=== PATIENT | male | born 1950 | race Caucasian/White ===

== ENCOUNTER 2021-02-09 07:37 | Outpatient (RCR) | payer OTHER, SELFPAY ==
[2021-01-12 09:28] VITALS: BMI 41.9
== END 2021-03-23 10:39 | disposition home or self-care (01) ==
LOC: ANHWOC 07:37
PROVIDERS: PCP Family Medicine; Visit Provider Podiatrist Foot & Ankle Surgery
DX: A52.16 Charcot's arthropathy (tabetic) (principal); L97.429 Non-pressure chronic ulcer of left heel and midfoot with unspecified severity
CPT/HCPCS: 29445; 87070; 87147; 87181; 87186; 87205; 88305; 99213; A9270; G0463

== ENCOUNTER 2021-04-04 11:17 | Inpatient (IN) | payer OTHER, SELFPAY ==
[2021-04-04] VITALS (11 sets, daily range): BP systolic 91–151; BP diastolic 52–76; PULSE 80–112; RESP 18–20; TEMP 37.2–37.4; O2SAT 91–100; BMI 36.8
--- NOTE | ~2021-04-04 | XR_ITS ---
XR knee RT min 4V 04/04/2021 12:28 INDICATION: Right knee pain after fall PROCEDURE: 4 views right knee COMPARISON: No prior studies for comparison. FINDINGS: Fracture, dislocation or subluxation is not identified. There is atherosclerosis. There is a vascular stent in the popliteal region. There is right total knee arthroplasty. Prosthesis well sea deborah. The soft tissues appear within normal limits. No foreign bodies are identified. IMPRESSION: 1: NO ACUTE BONE OR JOINT ABNORMALITY IDENTIFIED. Reviewed, dictated and finalized at location B.
--- NOTE | ~2021-04-04 | XR_ITS ---
EXAMINATION: XR sacrum coccyx min 2V INDICATION: Pain after fall TECHNIQUE: Three views of the sacrum and coccyx are obtained. COMPARISON: None available FINDINGS: Bone alignment is normal. No fracture is identified. There is mild lower lumbar spondylosis . Calcified atherosclerosis is noted. IMPRESSION: 1. No acute osseous abnormality. Reviewed, dictated and finalized at location A.
--- NOTE | ~2021-04-04 | XR_ITS ---
EXAMINATION: XR chest 1V portable INDICATION: Dizziness TECHNIQUE: Portable AP chest at 1259 hours COMPARISON: 05/22/2012 FINDINGS: The lungs are free acute opacities. There is no pleural effusion or pneumothorax. The cardi omediastinal silhouette is normal. There is advanced osteoarthritis of the glenohumeral joints. IMPRESSION: 1. No acute cardiopulmonary abnormality. Reviewed, dictated and finalized at location A.
--- NOTE | ~2021-04-04 | US_ITS ---
EXAMINATION: US venous doppler [facility] DATE: 04/05/2021 12:38 INDICATION: Left lower limb swelling TECHNIQUE: Baptiste scale images without and with compression and Doppler images of the left lower extrem ity veins were obtained. COMPARISON: None FINDINGS: The left common femoral vein, profunda femoral vein, femoral vein, popliteal vein, peroneal trunk, posterior tibial veins, and greater saphenous vein are patent. A Villasenor's cyst is noted. IMPRESSION: 1. Patent left lower extremity veins. No evidence of deep venous thrombosis. Reviewed, dictated and finalized at location A.
--- NOTE | ~2021-04-04 | XR_ITS ---
EXAMINATION: XR foot LT min 3V DATE: 04/04/2021 16:54 INDICATION: Left foot infection with plantar ulcer. TECHNIQUE: 3 views of left foot were obtained. COMPARISON: Left foot radiographs 08/23/2020 FINDINGS: There is a rocker-bottom foot deformity with dislocations, extensive erosions, and bone fra gmentation involving the midfoot and hindfoot. There is mild osteoarthritis of some of the interphala ngeal joints. There is an enthesophyte at plantar aspect of calcaneal tuberosity. There is an ulcer p lantar to the midfoot. IMPRESSION: 1. 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 The location of t he plantar ulcer is suspicious for superimposed osteomyelitis/septic arthritis. Note that neuropathic osteoarthropathy and osteomyelitis/septic arthritis have a similar appearance, and the distribution of infection likely cannot be determined by imaging in this case. Reviewed, dictated and finalized at location A. IMPRESSION: 1. Worsened severe neuropathic osteoarthropathy involving the midfoot and hindf oot. The location of the plantar ulcer is suspicious for superimposed osteomyel itis/septic arthritis. Note that neuropathic osteoarthropathy and osteomyelitis /septic arthritis have a similar appearance, and the distribution of infection likely cannot be determined by imaging in this case.
--- NOTE | ~2021-04-04 | XR_ITS ---
XR shoulder RT min 2V 04/04/2021 12:28 Indication: Bilateral shoulder pain after fall Procedure: 4 views each shoulder Comparison: No prior studies for comparison. Findings: There is severe bilateral glenohumeral joint osteoarthritis. Acromioclavicular joint and an atomic alignment bilaterally. No acute fracture or traumatic malalignment. There are bilateral infilt rates of the lung parenchyma, incompletely visualized. No foreign bodies. Impression: 1: Severe bilateral glenohumeral joint osteoarthritis. 2: Bilateral lung parenchymal infiltrates. Correlation with chest x-ray recommended. Reviewed, dictated and finalized at location B. Impression: 1: Severe bilateral glenohumeral joint osteoarthritis. 2: Bilateral lung parenchymal infiltrates. Correlation with chest x-ray recomm ended.
--- NOTE | ~2021-04-04 | XR_ITS ---
XR hip LT min 2V 04/04/2021 12:28 INDICATION: Left hip pain PROCEDURE: 2 views left hip COMPARISON: 05/16/2012 FINDINGS: Fracture, dislocation or subluxation is not identified. There is mild osteoarthritis of the left hip. The soft tissues appear within normal limits. No foreign bodies are identified. IMPRESSION: 1: NO ACUTE BONE OR JOINT ABNORMALITY IDENTIFIED. Reviewed, dictated and finalized at location B.
--- NOTE | ~2021-04-04 | XR_ITS ---
EXAMINATION: XR shoulder LT min 2V INDICATION: Left shoulder pain TECHNIQUE: Four views of the left shoulder are submitted. COMPARISON: 05/22/2012 FINDINGS: There is no fracture. There is advanced osteoarthritis of the glenohumeral joint. Mild oste oarthritis is noted in the acromioclavicular joint. Soft tissues are unremarkable. IMPRESSION: 1. Advanced osteoarthritis of the glenohumeral joint without acute osseous findings. Reviewed, dictated and finalized at location A. IMPRESSION: 1. Advanced osteoarthritis of the glenohumeral joint without acute osseous find ings.
--- NOTE | ~2021-04-04 | MR_ITS ---
EXAMINATION: MR foot LT wo con DATE: 04/05/2021 12:31 INDICATION: Chronic ulcer at the left foot with findings on prior radiograph concerning for osteomyel itis. TECHNIQUE: Magnetic resonance imaging (MRI) of the left fore/mid foot was performed without intraveno us contrast. Sequences included axial, sagittal and coronal T1-weighted FSE and axial, sagittal and c oronal T2-weighted FS FSE. COMPARISON: None FINDINGS: Again seen are prominent destructive changes in the mid and hindfoot. This involves most severely the cuboid, cuneiforms and navicula where there is significant loss of bone stock and complete or near c omplete loss of normal T1 marrow fat signal. Additional less severe destructive changes but with exte nsive T1 marrow signal loss at the talus, calcaneus and proximal aspect of the fourth and fifth metat arsals. Mild destructive changes without significant T1 marrow signal loss at the base of the second and third metatarsals. There is a small amount of fluid fluid extending between the affected bones an d with appears be a sinus tract extending from the region of the region of the fourth tarsal metatars al joint plantar through the fat pad to the ulceration at the plantar skin surface. There is also a d orsal extension of fluid from the same region of the fourth tarsal metatarsal joint communicate with a large loculated subcutaneous fluid collection positioned between the base in the distal diaphyses o f the second-fifth metatarsals which is most suspicious for abscess. This fluid collection measures u p to 8.5 cm proximal to distal, 6.3 cm medial to lateral and up to 1.8 cm dorsal plantar thickness. A lthough the destructive bone changes in the mid and hindfoot could be seen with advanced Charcot join t/neuropathic arthropathy, the degree of marrow signal changes, the presence of apparent sinus tract as well as large loculated fluid collection suspicious for abscess would also favor osteomyelitis ear ly superimposed osteomyelitis over an aseptic neuropathic arthropathy. There are marrow signal change s along the margins of the distal tibia most prominent at the medial and posterior malleoli as well a s at the distal fibula which are also suspicious for osteomyelitis. There appears to be early erosion along the inferomedial aspect of the tip of the lateral malleolus at the insertion of the calcaneofi bular ligament. IMPRESSION: 1. Extensive osseous destructive changes in the mid and hindfoot most suspicious for osteomyelitis or osteomyelitis superimposed over neuropathic arthropathy for reasons as detailed above. Additional ma rrow signal changes at the distalmost tibia and fibula also suspicious for early osteomyelitis. 2. 8.5 x 6.3 x 1.8 cm loculated fluid collection the dorsal subcutaneous tissues which appears to com municate with the Lisfranc joint most suspicious for associated abscess. Could consider percutaneous aspiration for confirmatory Gram stain and cultures if clinically indicated. Reviewed, dictated and finalized at location A. IMPRESSION: 1. Extensive osseous destructive changes in the mid and hindfoot most suspiciou s for osteomyelitis or osteomyelitis superimposed over neuropathic arthropathy for reasons as detailed above. Additional marrow signal changes at the distalmo st tibia and fibula also suspicious for early osteomyelitis. 2. 8.5 x 6.3 x 1.8 cm loculated fluid collection the dorsal subcutaneous tissue s which appears to communicate with the Lisfranc joint most suspicious for asso ciated abscess. Could consider percutaneous aspiration for confirmatory Gram st ain and cultures if clinically indicated.
--- NOTE | 2021-04-04 11:44 | ECG_ITS ---
Measurements Intervals [place] Rate: 92 P: 95 KS: 200 QRS: -17 QRSD: 103 T: 7 QT: 330 QTc: 409 Interpretive Statements SINUS RHYTHM ANTEROSEPTAL INFARCT, AGE INDETERMINATE NONSPECIFIC T-WAVE ABNORMALITY- ANTEROLAT/INF LEADS BASELINE ARTIFACT- I, II, III, AVR, AVL, AVF ABNORMAL ECG Electronically Signed On 04-04-2021 12:28:09 CDT by Benito Mcallister D.O.
[2021-04-04 12:03] LABS: Basophils Percent Auto 0.2 % (0.2-1.2); Hematocrit 27.9 % (42.0-52.0); Hemoglobin 8.5 g/dL (14.0-18.0); Immature Granulocyte Absolute 0.19 K/mm3 (0.00-0.031); Lymphocytes Absolute Auto 0.72 K/mm3 (0.9-3.2); Lymphocytes Percent Auto 3.7 % (18.3-44.2); Mean Corpuscular HGB Conc 30.5 g/dl (32-36); Mean Corpuscular Volume 75.6 fl (80-100); Mean Platelet Volume 8.8 fl (7.4-10.4); Neutrophils Absolute Auto 17.5 K/mm3 (1.3-6.7); Neutrophils Percent Auto 90.1 % (45.5-73.1); Platelet Count Result 540 k/mm3 (150-375); Red Blood Count 3.69 M/mm3 (4.6-6.20); Red Cell Distribution Width 17.9 % (11.5-14.5); White Blood Count 19.4 K/mm3 (4.5-10.0)
[2021-04-04 12:15] LABS: Anion Gap 11 mmol/L (8-16); Blood Urea Nitrogen 38 mg/dL (9-20); Carbon Dioxide 23 mmol/L (22-30); Chloride 98 mmol/L (98-107); Estimated CRCL calculation 59 ml/min; Estimated Glomerular Filt Rate 50; Glucose 94 mg/dL (75-110); Potassium 4.5 mmol/L (3.4-5.0); Sodium 132 mmol/L (137-145)
--- NOTE | 2021-04-04 12:48 | PC.NURSE ---
patient reports that he fell in his garage 2 days ago and layed on the floor for for 2 hours. patient reports that everything hurts and will not give specifics about his injuries. patient seems more concerned about looking for a coin in his pockets than participating in assessment
--- NOTE | 2021-04-04 13:22 | PC.NURSE ---
attempted to complete med list and past medical history on patient patient again distracted by items in his pockets and unwilling/unable to provided information
[2021-04-04 13:33] LABS: Lactic Acid Reflex 1.5 mmol/L (0.7-2.1)
--- NOTE | 2021-04-04 15:12 | ED.GENADULT ---
HPI - General Adult General Chief complaint: Fall Stated complaint: fall Time Seen by Provider: 04/04/21 13:14 Source: patient History of Present Illness HPI narrative: Patient is a 70 y/o male complaining of falling yesterday in his garage. He states that he had difficulty getting up and had to call 911 to help him up. He did not come to hospital for evaluation however. He complains of right knee pain, bilateral shoulder pain and bilateral knee abrasion. He denies hitting his head or passing out. He rates his pain as 10/10. His pain is worse with movement. He also has been coughing for several weeks. He has chronic left foot draining wound. Related Data Home Medications Medication Instructions Recorded Confirmed hydrocodone 10 mg-acetaminophen 1 tablet PO Q8H PRN 12/10/19 02/01/21 325 mg tablet ciprofloxacin HCl 250 mg tablet 750 mg PO Q12H tablet 03/02/21 metronidazole 500 mg tablet 500 mg PO Q8H 03/02/21 clopidogrel 75 mg tablet 75 mg PO DAILY 03/25/21 oxycodone-acetaminophen 1 tablet PO Q4-6H 04/04/21 Allergies Allergy/AdvReac Type Severity Reaction Status Date / Time propoxyphene Allergy Unknown Anaphylactic Verified 03/02/21 11:15 Shock Review of Systems Constitutional: Constitutional: Denies chills, Denies fever(s), Denies headache(s) and Denies weakness Eyes: Eyes: Denies blurry vision ENT: Denies headache(s) and Denies neck pain Cardiovascular: Cardiovascular: Denies chest pain and Denies dyspnea Respiratory: Respiratory: Denies cough and Denies dyspnea Gastrointestinal: Gastrointestinal: Denies abdominal pain, Denies diarrhea, Denies nausea and Denies vomiting Genitourinary: Genitourinary: Denies hematuria and Denies dysuria Musculoskeletal: Musculoskeletal: Denies back pain, Reports arthralgias (shoulder pain and knee) and Denies neck pain Integumentary/Breasts: Skin/Breast: Reports wounds (abrasion to knees) Neurologic: Denies headache(s) and Denies weakness PMF Past Medical History Medical History Acquired right foot drop Arthritis Carotid stenosis Charcot's arthropathy Emphysema/COPD Exostosis of left foot GERD (gastroesophageal reflux disease) Gout Hearing loss High cholesterol HTN (hypertension), benign Male hypogonadism LIZZIE (obstructive sleep apnea) Osteoporosis Sleep apnea Vision abnormalities Wears glasses Surgical History Surgical History History of foot surgery Left foot exostosis 2015 Family History Family History (Updated 04/04/21 @ 18:37 by Giselle Bhat RN) Father Family history of lung cancer Mother Pneumonia Social History Social History Social History: Smoking packs per day: 3 Smoking cigarettes per day: 60.0 Years smoked: 40 Smoking pack-years: 120.00 Smoking status: Former smoker Tobacco type: cigarettes Second hand tobacco smoke exposure: No Smoking end date: 10/15/10 Alcohol intake: never Drinks per week: 6 Substance use: current Substance use type: painkillers and prescription drug Gender identity (if verbalized by the patient): Male Spiritual care concerns: No Exam Const: General: no acute distress and well developed Orientation/consciousness: oriented to person, oriented to place, oriented to time and patient oriented x3 HENMT: Head: normocephalic Ears: external ears normal General nose exam: Normal external nose present Eyes: General: appearance normal, both eyes and all related structures Conjunctivae: conjunctivae normal Neck: Neck: normal visual inspection and full ROM Chest: Chest palpation & inspection: normal inspection of the chest and no tenderness Resp: Effort & Inspection: normal respiratory effort Auscultation: clear to auscultation bilaterally Cardio: Rate: regular rate Rhythm: regular rhythm GI: GI P
[2021-04-04] MEDS: SODIUM CHLORIDE 0.9% IV 1,000 ML 999 ML IV CONT (16:20)
[2021-04-04 16:47] LABS: Add Urine Microscopic? YES; Appearance Urine Cloudy (Clear); Bacteria Urine Trace /hpf; Bilirubin Urine Negative (Negative); Blood Urine 2+ (Negative); Color Urine Yellow (Yellow); Glucose Urine UA Negative (Negative); Ketones Urine Trace mg/dL (Negative); Leukocyte Esterase Ur Negative LEU/UL (Negative); Mucus Urine Rare /lpf; Nitrate Urine Negative (Negative); Protein Urine 1+ mg/dL (Negative); Squamous Epithelial Cell Urine Rare /hpf (Few); Urobilinogen Urine Negative mg/dL (<2.0)
[2021-04-04 16:51] LABS: Creatine Kinase 886 U/L (55-170)
[2021-04-04 17:03] LABS: Lactic Acid Reflex 0.7 mmol/L (0.7-2.1)
[2021-04-04 17:20] LABS: Erythrocyte Sedimentation Rate > 140 mm/hr (0-20)
[2021-04-04 17:23] LABS: CRP 22.6 mg/dL (<1.0)
--- NOTE | 2021-04-04 18:30 | PC.NURSE ---
This patient, Florinda Conn, was admitted to [facility] Surg Room 328-01. Patient/family oriented to hospital policies and general routines including ID bracelet, bed and alarms, visiting hours, pain management, procedures, bathroom and other care routines, personal items, smoking policy, room service/diet, and visiting hours.Report received from Dot OLSON. Information on how to activate the Rapid Response Team has been discussed. Patient/Family are encouraged to report perceived risks to care and to ask questions if they do not understand what they are told or what they should do.
--- NOTE | 2021-04-04 23:03 | PM.IMHP ---
H&P: HPI History of Present Illness Date/Time: 04/04/21 23:03 Chief Complaint: Generalized pain fall Narrative: Patient is a 70 y/o male who comes into the ER after his fall in his garage was yesterday. He was not able to get up and had to call 911 to help him up. He however did not come to the hospital for evaluation yesterday. He was evaluated by his home health nurse and suggested he come into the hospital for evaluation. He also reports he had increased pain all over his body since the fall. He reports right knee pain bilateral shoulder pain and bilateral knee abrasions. He denies hitting head or passing out. He also reports having cough for several weeks and has a chronic left foot draining wound that is currently taking antibiotics with Cipro and metronidazole. He was recently admitted to hospital in [place] with left foot wound and was evaluated by orthopedic. He was suggested he did require any surgical intervention at the time and was discharged on Cipro and Flagyl to take which he has been doing since the discharge few weeks back. He was also getting wound care with home health from his primary care since then Review of Systems Review of Systems: Narrative: - CONSTITUTIONAL: Denies weight loss, fever and chills. Reports pain all over his body - HEENT: Denies changes in vision and hearing - RESPIRATORY: Reports chronic SOB and reports some mild cough for some time - CV: Denies palpitations and CP. - GI: Denies abdominal pain, nausea, vomiting and diarrhea. - : Denies dysuria and urinary frequency. - MSK: Denies myalgia and joint pain. - SKIN: Denies rash and pruritus. - NEUROLOGICAL: Denies headache and syncope. - PSYCHIATRIC: Denies recent changes in mood. Denies anxiety and depression. All systems reviewed & are unremarkable except as noted in HPI and below Constitutional: Constitutional: Reports fatigue and Reports weakness Neurologic: Reports weakness Endocrine: Endocrine: Reports fatigue PMFSH Past Medical History Medical History Acquired right foot drop Arthritis Carotid stenosis Charcot's arthropathy Emphysema/COPD Exostosis of left foot GERD (gastroesophageal reflux disease) Gout Hearing loss High cholesterol HTN (hypertension), benign Male hypogonadism LIZZIE (obstructive sleep apnea) Osteoporosis Sleep apnea Vision abnormalities Wears glasses Surgical History Surgical History History of foot surgery Left foot exostosis 2016 Family History Family History (Updated 04/04/21 @ 18:37 by Giselle Bhat RN) Father Family history of lung cancer Mother Pneumonia Social History Social History Social History: Smoking packs per day: 3 Smoking cigarettes per day: 60.0 Years smoked: 40 Smoking pack-years: 120.00 Smoking status: Former smoker Tobacco type: cigarettes Second hand tobacco smoke exposure: No Smoking end date: 10/15/10 Alcohol intake: never Drinks per week: 6 Substance use: current Substance use type: painkillers and prescription drug Gender identity (if verbalized by the patient): Male Spiritual care concerns: No Meds Home Medications and Allergies Home Medications Medication Instructions Recorded Confirmed Type amlodipine 5 mg tablet 5 mg PO DAILY #90 tablet 10/25/20 04/04/21 Rx meloxicam 15 mg tablet 15 mg PO DAILY PRN #30 tablet 12/23/20 04/04/21 Rx fenofibrate 160 mg tablet 160 mg PO DAILY #90 tablet 03/08/21 04/04/21 Rx losartan 100 mg tablet 100 mg PO DAILY #90 tablet 03/08/21 04/04/21 Rx metoprolol succinate 100 mg 100 mg PO DAILY #90 tablet 03/08/21 04/04/21 Rx tablet,extended release 24 hr zolpidem 10 mg tablet 10 mg PO .qhs #90 tablet 03/10/21 04/04/21 Rx clopidogrel 75 mg tablet 75 mg PO DAILY 03/25/21 04/04/21 History allopurinol 300 mg
[2021-04-05] VITALS (11 sets, daily range): BP systolic 97–132; BP diastolic 47–65; PULSE 73–96; RESP 16–21; TEMP 36.1–37.7; O2SAT 96–100; BMI 36.8
[2021-04-05] MEDS: ZOLPIDEM TARTRATE (*CRX) 5 MG TABLET 10 MG PO ×2 (00:02→21:34)
[2021-04-05] MEDS: oxyCODONE/ACETAMINOPHEN (*CRX) 5-325 MG TABLET 1 TABLET PO ×4 (02:57→23:26)
[2021-04-05] MEDS: SODIUM CHLORIDE 0.9% IV 1,000 ML 75 ML IV CONT (03:09)
[2021-04-05 06:13] LABS: Basophils Percent Auto 0.1 % (0.2-1.2); Hematocrit 23.3 % (42.0-52.0); Hemoglobin 7.1 g/dL (14.0-18.0); Immature Granulocyte Absolute 0.15 K/mm3 (0.00-0.031); Immature Granulocyte Percent A 0.9 % (0-0.5); Lymphocytes Absolute Auto 0.94 K/mm3 (0.9-3.2); Lymphocytes Percent Auto 5.7 % (18.3-44.2); Mean Corpuscular HGB Conc 30.5 g/dl (32-36); Mean Corpuscular Hemoglobin 23.2 pg (26-34); Mean Corpuscular Volume 76.1 fl (80-100); Mean Platelet Volume 8.9 fl (7.4-10.4); Monocytes Percent Auto 6.2 % (2.6-8.5); Neutrophils Absolute Auto 14.4 K/mm3 (1.3-6.7); Neutrophils Percent Auto 87.1 % (45.5-73.1); Platelet Count Result 410 k/mm3 (150-375); Red Blood Count 3.06 M/mm3 (4.6-6.20); Red Cell Distribution Width 17.5 % (11.5-14.5); Reticulocyte Hemoglobin Conten 21.2 pg (28.2-35.7); Reticulocyte Percent 1.16 % (0.7-4.3); Reticulocytes Absolute 0.04 B/L (32.2-175.7); White Blood Count 16.5 K/mm3 (4.5-10.0)
[2021-04-05 07:21] LABS: Iron < 10 ug/dL (49-181)
[2021-04-05 07:28] LABS: Folic Acid 7.2 ng/mL (2.76->20)
[2021-04-05 07:31] LABS: Percent Iron Saturation 8 % (20-50)
[2021-04-05 08:58] LABS: Alanine Aminotransferase 30 U/L (4-50); Albumin Level 2.8 g/dL (3.5-5.1); Alkaline Phosphatase 80 U/L (38-126); Anion Gap 7 mmol/L (8-16); Aspartate Amino Transferase 114 U/L (17-59); Bilirubin,Total 0.4 mg/dL (0.2-1.3); Blood Urea Nitrogen 25 mg/dL (9-20); Calcium 8.3 mg/dL (8.4-10.2); Carbon Dioxide 23 mmol/L (22-30); Chloride 102 mmol/L (98-107); Creatine Kinase 354 U/L (55-170); Estimated CRCL calculation 100 ml/min; Estimated Glomerular Filt Rate > 60; Glucose 105 mg/dL (75-110); Potassium 3.9 mmol/L (3.4-5.0); Sodium 132 mmol/L (137-145)
[2021-04-05 09:00] LABS: CRP 24.9 mg/dL (<1.0)
--- NOTE | 2021-04-05 10:11 | PM.CNOR ---
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 He has been previously evaluated by Dr. Palomino in our outpatient orthopedic clinic and surgical intervention was discussed at that time which he declined. He has been seen by several foot ankle specialist including Dr. Frias. Most recently, he was referred to a foot ankle specialist at [facility]. He has a follow-up appointment scheduled for tomorrow. He has been being treated for the chronic foot ulcer with home health wound dressing changes 3 times weekly. He was recently admitted to [facility] and discharged on Cipro and Flagyl for suspected foot wound. Per the patient and medical record, patient was to follow up with Dr. Madrid tomorrow for further surgical discussion. Radiographs obtained in the emergency room reveal worsened neuropathic osteoarthropathy involving the midfoot and hindfoot. The are underlying the plantar ulcer is suspicious for superimposed osteomyelitis/septic arthritis. Radiologist also noted that neuropathic osteoarthropathy and osteomyelitis/septic arthritis have a similar appearance, and the distribution of infection likely cannot be determined by imaging in this case. MRI ordered by the hospitalist service. We will await MRI results however patient is requesting surgical intervention to be performed by Dr. Madrid since he has his been following the patient. The patient states that he came here only because of his shoulder pain. Continue daily dressing changes in the interim. Continue IV antibiotics as ordered. Will determine further plan of care pending MRI results. Patient may require transfer to [facility] with Dr. Madrid. (2) Acquired right foot drop: Code(s): M21.371 - Foot drop, right foot Status: Acute Assessment and Plan: Chronic right drop foot. (3) Osteomyelitis of left foot: Qualifiers: Osteomyelitis type: unspecified type Qualified Code(s): M86.9 - Osteomyelitis, unspecified Code(s): M86.9 - Osteomyelitis, unspecified Status: Acute Assessment and Plan: Questionable osteomyelitis/septic arthritis versus neuropathic osteoarthropathy. MRI pending. Wound appears to be stable in nature. 100% red/ pink wound bed. No purulence, no malodor. Mild fluctuance on the dorsal lateral aspect of the midfoot. Surrounding tissue with dry flaky skin. No soft tissue/wound signs of acute infection. (4) DJD of shoulder: Qualifiers: Osteoarthritis type: primary Laterality: bilateral Qualified Code(s): M19.011 - Primary osteoarthritis, right shoulder; M19.012 - Primary osteoarthritis, left shoulder Code(s): M19.019 - Primary osteoarthritis, unspecified shoulder Status: Acute Assessment and Plan: Patient has a history of bilateral shoulder pain. He reports that his shoulder pain has worsened since his fall. He has been treated by our orthopedic office for this in the past. His most recent injection was in 2019 of the right shoulder by Dr. West. He contacted our office recently and set up an appointment for May for repeat injections of bilateral shoulders. Radiographs obtained in the Emergency Room [place] severe glenohumeral joint DJD bilaterally. Discussed condition, nature, etiology course of natural history. Conservative and operative treatment options reviewed as well the risks and benefits of each. Given the current concern for infection of his foot, patient is not a good candidate for cortisone injections as it is known to cause increased risk of infection. Patient is being seen by pain management and is chronically on narcotics. He was evaluated by pain management last week as well. He may continue medications
[2021-04-05] MEDS: amLODIPine BESYLATE 5 MG TABLET PO (10:22)
[2021-04-05] MEDS: allopurinoL 300 MG TABLET PO (10:22)
[2021-04-05] MEDS: PANTOPRAZOLE 40 MG TABLET PO ×2 (10:22→17:12)
[2021-04-05] MEDS: METOPROLOL SUCCINATE EXT REL 100 MG TABCR PO (10:22)
[2021-04-05] MEDS: CLOPIDOGREL BISULFATE 75 MG TABLET PO (10:22)
[2021-04-05] MEDS: LOSARTAN POTASSIUM 100 MG TABLET PO (11:03)
[2021-04-05] MEDS: oxyCODONE HCL (*CRX) 5 MG TAB IR PO ×3 (11:04→23:26)
[2021-04-05 13:08] LABS: Hematocrit 23.1 % (42.0-52.0)
--- NOTE | 2021-04-05 13:44 | PM.IMPN ---
Progress Note: A&P Assessment and Plan (1) Osteomyelitis of left foot: Qualifiers: Osteomyelitis type: unspecified type Qualified Code(s): M86.9 - Osteomyelitis, unspecified Code(s): M86.9 - Osteomyelitis, unspecified Status: Acute Assessment and Plan: Questionable. Foot x-ray shows suspicion for superimposed osteomyelitis/septic arthritis at the location of the left plantar ulcer. Foot MRI is pending Appreciate orthopedic surgery consultation (2) Sepsis: Qualifiers: Sepsis acute organ dysfunction status: unspecified Sepsis type: sepsis due to unspecified organism Qualified Code(s): A41.9 - Sepsis, unspecified organism Code(s): A41.9 - Sepsis, unspecified organism Status: Acute Assessment and Plan: Present on admission with leukocytosis, tachycardia, and fever. Source of infection possibly osteomyelitis as above. Gram-positive cocci in clusters. Initial wound culture also with few Gram-positive cocci. He has a history of MRSA of left foot wound in January 2021. Continue cefepime and vancomycin Await results of blood culture and wound culture. Continue gentle IV fluids Monitor vital signs and electrolytes (3) Anemia: Code(s): D64.9 - Anemia, unspecified Status: Acute Assessment and Plan: Hemoglobin was 8.5 at presentation with decline today down to 7.0. Denies bleeding and no signs/symptoms to suggest GI bleed. Iron panel suggestive of anemia of chronic disease. Iron stores are very low. B12 and folate wnl Transfuse 1 unit pRBC. Repeat H&H 1 hour following transfusion and trend q6h to ensure remaining stable Stool occult blood test has been ordered and awaiting collection May benefit from IV iron infusion. Continue IV protonix. Reports history of PUD. Hold plavix at this time. (4) Fall: Code(s): W19.XXXA - Unspecified fall, initial encounter Status: Acute Assessment and Plan: Fell at home and was down on the ground for approximately 2 hours. Complains of shoulder pain, knee pain, and buttock pain. CK slightly elevated at 880, improved today down to 350 with fluids. Knee, hip, sacrum and coccyx, and shoulder x-ray with no acute findings. Fall precautions Supportive care. Analgesics available as needed for pain. Appreciate PT/OT eval (5) HTN (hypertension), benign: Code(s): I10 - Essential (primary) hypertension Status: Acute Assessment and Plan: Blood pressures reviewed and have been stable. Last BP 112/52. Continue amlodipine and losartan (6) WARNER (acute kidney injury): Code(s): N17.9 - Acute kidney failure, unspecified Status: Acute Assessment and Plan: Creatinine elevated at presentation up to 1.4. Suspect prerenal etiology given rapid improvement with IV fluids. Creatinine normalized today. Monitor renal function (7) LIZZIE (obstructive sleep apnea): Code(s): G47.33 - Obstructive sleep apnea (adult) (pediatric) Status: Acute Assessment and Plan: Continue CPAP when sleeping Additional Plan Venous doppler negative for DVT Subjective Date/time seen: 04/05/21 13:44 Interval history: Date of service: 04/05/2021 Florinda Conn is a 70-year-old male with a history of Charcot's arthropathy, COPD, GERD, hypertension, and LIZZIE who is seen in follow up for shoulder and back pain after a fall. He complains of pain in his shoulder, back, and buttocks. His shoulders with most bothersome. He knows neuropathy in his lower extremities reports a dull ache in the left foot. He had chills last night. He has been having loose, watery brown stools. Denies melena or hematochezia. No hematemesis. No abdominal pain or epigastric pain. He denies hematuria or dark colored urine. He has been feeling intermittently lightheaded. He denies shortness of breath. No chest pain. He reports all over body aches but denies muscl
[2021-04-05] MEDS: ATORVASTATIN 10 MG TABLET PO (20:53)
--- NOTE | 2021-04-06 | ECHO_ITS ---
Patient Info Name: Florinda Conn Age: 70 years : 1950 Gender: Male Ht: 71 in Wt: 264 lbs BSA: 2.49 m2 HR: 78 bpm BP: 166 / 52 mmHg Technical Quality: Poor Exam Date: 04/06/2021 1:53 PM Exam Location: [facility] Pulmonary Exam Room: [facility] Patient Status: Inpatient Admit Date: 04/05/2021 Staff Ordering Physician: Velia Lopez PA-C Receiving Barn Custodian: Carly Collier RDCS Attending Provider: Velia Lopez PA-C Referring Physician: John GARCIA; Exam Type: CA echo dop color flow w con Study Info Indications - MRSA BACTEREMIA Complete two-dimensional, color flow and Doppler transthoracic echocardiogram is performed with contrast to opacify the left ventricle and to improve the deliniation of the left ventricle endocardial borders. Contrast/Agitated Saline Contrast/Ag. Saline: Definity Amount: 2.00 ml Administered By: Aniya Heart RN Existing IV Access: Yes IV Access Condition: patent with no signs of infiltration Reason for Poor Study: patient body habitus Summary 1. Left ventricular chamber dimension is severely enlarged. 2. Definity contrast administered improved wall motion interpretation. 3. Left ventricular systolic function is moderately reduced, estimated at 35-40%. 4. The left ventricular diastolic function is grade I diastolic dysfunction. 5. E/e' 14 is mildly elevated. 6. Left atrial chamber dimension is severely enlarged. 7. Right atrial chamber dimension is moderately enlarged. 8. The aortic valve is not well visualized. Cannot determine number of aortic valve leaflets. 9. There is mild aortic valve stenosis based on a peak velocity of 295.31 cm/s, mean gradient of 21 mmHg, and aortic valve area of 1.64 cm2. 10. There is mild aortic valve sclerosis. 11. The mitral valve has mildly calcified annulus. 12. There is mild mitral valve regurgitation. 13. There is trace tricuspid valve regurgitation. 14. No pulmonary hypertension, estimated pulmonary arterial systolic pressure is 30 mmHg. 15. Dilated inferior vena cava with >50% collapse upon inspiration consistent with elevated right atrial pressure, 10 mmHg. Left Ventricle E/e' 14 is mildly elevated. Definity contrast administered improved wall motion interpretation. Left ventricular chamber dimension is severely enlarged. Left ventricular systolic function is moderately reduced, estimated at 35-40%. The left ventricular diastolic function is grade I diastolic dysfunction. Right Ventricle Right ventricular chamber dimension is normal. Right ventricular systolic function is normal. Left Atria Left atrial chamber dimension is severely enlarged. Right Atria Right atrial chamber dimension is moderately enlarged. Aortic Valve The aortic valve is not well visualized. Cannot determine number of aortic valve leaflets. There is mild aortic valve stenosis based on a peak velocity of 295.31 cm/s, mean gradient of 21 mmHg, and aortic valve area of 1.64 cm2. There is mild aortic valve sclerosis. There is no aortic valve regurgitation. No aortic valve vegetation visualized. Pulmonic Valve There is no pulmonic regurgitation. Mitral Valve The mitral valve has mildly calcified annulus. There is no mitral valve stenosis. There is mild mitral valve regurgitation. No mitral valve vegetation visualized. Tricuspid Valve No obvious tricuspid valve vegetation visualized. There is trace tricuspid valve regurgitation. No pulmonar
[2021-04-06 00:30] VITALS: BP 100/45; PULSE 81; RESP 20; TEMP 36.4; O2SAT 98
[2021-04-06] MEDS: SODIUM CHLORIDE 0.9% IV 1,000 ML 75 ML IV CONT ×2 (00:41→20:51)
[2021-04-06 02:21] LABS: Hematocrit 24.3 % (42.0-52.0); Hemoglobin 7.4 g/dL (14.0-18.0)
[2021-04-06] MEDS: oxyCODONE/ACETAMINOPHEN (*CRX) 5-325 MG TABLET 1 TABLET PO ×4 (05:19→22:28)
[2021-04-06] MEDS: oxyCODONE HCL (*CRX) 5 MG TAB IR PO ×4 (05:20→22:28)
[2021-04-06 06:00] VITALS: BP 106/52; PULSE 81; RESP 18; TEMP 36.9; O2SAT 97
[2021-04-06 06:08] LABS: Basophils Percent Auto 0.2 % (0.2-1.2); Eosinophils Absolute Auto 0.1 K/mm3 (0-0.3); Eosinophils Percent Auto 0.7 % (0-4.4); Hemoglobin 7.7 g/dL (14.0-18.0); Immature Granulocyte Absolute 0.15 K/mm3 (0.00-0.031); Immature Granulocyte Percent A 0.8 % (0-0.5); Lymphocytes Absolute Auto 1.47 K/mm3 (0.9-3.2); Lymphocytes Percent Auto 7.9 % (18.3-44.2); Mean Corpuscular HGB Conc 30.8 g/dl (32-36); Mean Corpuscular Hemoglobin 23.6 pg (26-34); Mean Corpuscular Volume 76.7 fl (80-100); Mean Platelet Volume 9.7 fl (7.4-10.4); Monocytes Absolute Auto 1.3 K/mm3 (0.1-0.6); Neutrophils Absolute Auto 15.5 K/mm3 (1.3-6.7); Neutrophils Percent Auto 83.4 % (45.5-73.1); Platelet Count Result 385 k/mm3 (150-375); Red Blood Count 3.26 M/mm3 (4.6-6.20); Red Cell Distribution Width 17.6 % (11.5-14.5); White Blood Count 18.6 K/mm3 (4.5-10.0)
[2021-04-06 06:31] LABS: Anion Gap 8 mmol/L (8-16); Blood Urea Nitrogen 21 mg/dL (9-20); Calcium 8.5 mg/dL (8.4-10.2); Carbon Dioxide 23 mmol/L (22-30); Chloride 101 mmol/L (98-107); Creatine Kinase 245 U/L (55-170); Estimated CRCL calculation 100 ml/min; Estimated Glomerular Filt Rate > 60; Glucose 97 mg/dL (75-110); Potassium 3.7 mmol/L (3.4-5.0); Sodium 132 mmol/L (137-145)
[2021-04-06 06:48] LABS: CRP 26.1 mg/dL (<1.0)
[2021-04-06 08:02] VITALS: PULSE 84
[2021-04-06] MEDS: allopurinoL 300 MG TABLET PO (08:02)
[2021-04-06] MEDS: METOPROLOL SUCCINATE EXT REL 100 MG TABCR PO (08:02)
[2021-04-06] MEDS: amLODIPine BESYLATE 5 MG TABLET PO (08:02)
[2021-04-06] MEDS: PANTOPRAZOLE 40 MG TABLET PO ×2 (08:04→16:33)
[2021-04-06] MEDS: LOSARTAN POTASSIUM 100 MG TABLET PO (08:04)
[2021-04-06 11:56] LABS: Hematocrit 25.8 % (42.0-52.0); Hemoglobin 7.8 g/dL (14.0-18.0)
[2021-04-06 14:00] VITALS: BP 101/50; PULSE 75; RESP 18; TEMP 36.3; O2SAT 99
[2021-04-06] MEDS: PERFLUTREN LIPID MICROSPHERES 1.5 ML VIAL DILUTED TO 10 ML TOTAL VOLUME IV PUSH (15:11)
--- NOTE | 2021-04-06 16:48 | P.PNIM_ITS ---
Progress Note: A&P Assessment and Plan (1) Osteomyelitis of left foot: Qualifiers: Osteomyelitis type: unspecified type Qualified Code(s): M86.9 - Osteomyelitis, unspecified Code(s): M86.9 - Osteomyelitis, unspecified Status: Acute Assessment and Plan: Foot x-ray shows suspicion for superimposed osteomyelitis/septic arthritis. Follow-up foot MRI shows extensive osseous destructive changes in the mid and hindfoot most suspicious for osteomyelitis as well as 8.5 x 6.3 x 1.8 cm loculated fluid collection of the dorsal foot concerning for abscess. He has a history of MRSA of left foot wound in January 2021. He had an MRI in February 2021 with no evidence of abscess or osteomyelitis, per his orthopedic surgeon. * Appreciate orthopedic surgery consultation * Spoke with patient's orthopedic surgeon at [facility], Dr. Madrid/MARTINE Barron as well as Dr. West (orthopedics). All parties in a greement for transfer to [facility] for surgical evaluation by Dr. Madrid. - patient accepted for transfer to medical service at [facility] under care of Dr. Bunch with surgical consult. Awaiting bed availability (2) Abscess of left foot: Code(s): L02.612 - Cutaneous abscess of left foot Status: Acute Assessment and Plan: * Planning as above (3) Septicemia: Code(s): A41.9 - Sepsis, unspecified organism Status: Acute Assessment and Plan: Septic on admission with leukocytosis, tachycardia, and fever. Source of infection is foot abscess/osteomyelitis as above. Lactic 0.7. Remained afebrile today. Leukocytosis increasing. * Blood cultures with growth of MRSA in 2/2 bottles * Left wound culture with growth Staphylococcus aureus; sensitivities pending * Consult to Infectious Disease. Input is appreciated * Continue IV vancomycin. IV cefepime discontinued per ID * Echocardiogram has been ordered in light of bacteremia, awaiting results * Continue IV fluids * Monitor vital signs and electrolytes (4) Anemia: Code(s): D64.9 - Anemia, unspecified Status: Acute Assessment and Plan: Hemoglobin was 8.5 at presentation with decline down to 7.0. Denies bleeding and no signs/symptoms to suggest GI bleed. Iron panel suggestive of anemia of chronic disease. H&H remaining stable today * Transfused 1 unit pRBC on 04/05/2021 * Monitor hemoglobin hematocrit closely * Stool occult blood test has been ordered and awaiting collection * May benefit from IV iron infusion but will hold at this time in light of acute infection * Continue IV protonix. Reports history of PUD. Hold plavix at this time. (5) Fall: Code(s): W19.XXXA - Unspecified fall, initial encounter Status: Acute Assessment and Plan: Fell at home and was down on the ground for approximately 2 hours. Complains of shoulder pain, knee pain, and buttock pain. CK slightly elevated at 880, improved today down to 350 with fluids. Knee, hip, sacrum and coccyx, and shoulder x-ray with no acute findings. * Fall precautions * Supportive care. Analgesics available as needed for pain. * Appreciate PT/OT eval (6) HTN (hypertension), benign: Code(s): I10 - Essential (primary) hypertension Status: Acute Assessment and Plan: Blood pressures reviewed and have been stable on the lower end. Last BP 101/50 * Continue amlodipine and losartan (7) WARNER (acute kidney injury): Code(s): N17.9 - Acute kidney failure, unspecified Status: Acut
--- NOTE | 2021-04-06 16:48 | PM.IMPN ---
Progress Note: A&P Assessment and Plan (1) Osteomyelitis of left foot: Qualifiers: Osteomyelitis type: unspecified type Qualified Code(s): M86.9 - Osteomyelitis, unspecified Code(s): M86.9 - Osteomyelitis, unspecified Status: Acute Assessment and Plan: Foot x-ray shows suspicion for superimposed osteomyelitis/septic arthritis. Follow-up foot MRI shows extensive osseous destructive changes in the mid and hindfoot most suspicious for osteomyelitis as well as 8.5 x 6.3 x 1.8 cm loculated fluid collection of the dorsal foot concerning for abscess. He has a history of MRSA of left foot wound in January 2021. He had an MRI in February 2021 with no evidence of abscess or osteomyelitis, per his orthopedic surgeon. Appreciate orthopedic surgery consultation Spoke with patient's orthopedic surgeon at [facility], Dr. Madrid/MARTINE Barron as well as Dr. West (orthopedics). All parties in agreement for transfer to [facility] [place] for surgical evaluation by Dr. Madrid. - patient accepted for transfer to medical service at [facility] [place] under care of Dr. Bunch with surgical consult. Awaiting bed availability (2) Abscess of left foot: Code(s): L02.612 - Cutaneous abscess of left foot Status: Acute Assessment and Plan: Planning as above (3) Septicemia: Code(s): A41.9 - Sepsis, unspecified organism Status: Acute Assessment and Plan: Septic on admission with leukocytosis, tachycardia, and fever. Source of infection is foot abscess/osteomyelitis as above. Lactic 0.7. Remained afebrile today. Leukocytosis increasing. Blood cultures with growth of MRSA in 2/2 bottles Left wound culture with growth Staphylococcus aureus; sensitivities pending Consult to Infectious Disease. Input is appreciated Continue IV vancomycin. IV cefepime discontinued per ID Echocardiogram has been ordered in light of bacteremia, awaiting results Continue IV fluids Monitor vital signs and electrolytes (4) Anemia: Code(s): D64.9 - Anemia, unspecified Status: Acute Assessment and Plan: Hemoglobin was 8.5 at presentation with decline down to 7.0. Denies bleeding and no signs/symptoms to suggest GI bleed. Iron panel suggestive of anemia of chronic disease. H&H remaining stable today Transfused 1 unit pRBC on 04/05/2021 Monitor hemoglobin hematocrit closely Stool occult blood test has been ordered and awaiting collection May benefit from IV iron infusion but will hold at this time in light of acute infection Continue IV protonix. Reports history of PUD. Hold plavix at this time. (5) Fall: Code(s): W19.XXXA - Unspecified fall, initial encounter Status: Acute Assessment and Plan: Fell at home and was down on the ground for approximately 2 hours. Complains of shoulder pain, knee pain, and buttock pain. CK slightly elevated at 880, improved today down to 350 with fluids. Knee, hip, sacrum and coccyx, and shoulder x-ray with no acute findings. Fall precautions Supportive care. Analgesics available as needed for pain. Appreciate PT/OT eval (6) HTN (hypertension), benign: Code(s): I10 - Essential (primary) hypertension Status: Acute Assessment and Plan: Blood pressures reviewed and have been stable on the lower end. Last BP 101/50 Continue amlodipine and losartan (7) WARNER (acute kidney injury): Code(s): N17.9 - Acute kidney failure, unspecified Status: Acute Assessment and Plan: Resolved. Creatinine elevated at presentation up to 1.4. Suspect prerenal etiology given rapid improvement with IV fluids. Monitor renal function (8) LIZZIE (obstructive sleep apnea): Code(s): G47.33 - Obstructive sleep apnea (adult) (pediatric) Status: Acute Assessment and Plan: Continue CPAP when sleeping Subjective Date/time seen: 04/06/21 16:48
[2021-04-06 18:17] LABS: Hemoglobin 8.7 g/dL (14.0-18.0)
[2021-04-06] MEDS: ATORVASTATIN 10 MG TABLET PO (20:53)
[2021-04-06] MEDS: ZOLPIDEM TARTRATE (*CRX) 5 MG TABLET 10 MG PO (21:45)
[2021-04-06 22:00] VITALS: BP 103/48; PULSE 87; RESP 20; TEMP 36.6; O2SAT 99
[2021-04-06 23:35] VITALS: PULSE 88; O2SAT 93
[2021-04-07] MEDS: oxyCODONE/ACETAMINOPHEN (*CRX) 5-325 MG TABLET 1 TABLET PO ×4 (04:42→21:27)
[2021-04-07] MEDS: oxyCODONE HCL (*CRX) 5 MG TAB IR PO ×4 (04:42→21:27)
[2021-04-07 06:00] VITALS: BP 108/53; PULSE 89; RESP 20; TEMP 36.4; O2SAT 97
[2021-04-07 06:38] LABS: Basophils Percent Auto 0.3 % (0.2-1.2); Eosinophils Absolute Auto 0.2 K/mm3 (0-0.3); Eosinophils Percent Auto 1.3 % (0-4.4); Hematocrit 23.4 % (42.0-52.0); Hemoglobin 7.3 g/dL (14.0-18.0); Immature Granulocyte Absolute 0.16 K/mm3 (0.00-0.031); Immature Granulocyte Percent A 1.1 % (0-0.5); Lymphocytes Absolute Auto 1.24 K/mm3 (0.9-3.2); Lymphocytes Percent Auto 8.3 % (18.3-44.2); Mean Corpuscular HGB Conc 31.2 g/dl (32-36); Mean Corpuscular Hemoglobin 23.7 pg (26-34); Mean Platelet Volume 9.2 fl (7.4-10.4); Monocytes Absolute Auto 1.2 K/mm3 (0.1-0.6); Neutrophils Absolute Auto 12.1 K/mm3 (1.3-6.7); Platelet Count Result 403 k/mm3 (150-375); Red Blood Count 3.08 M/mm3 (4.6-6.20); Red Cell Distribution Width 17.7 % (11.5-14.5); White Blood Count 14.9 K/mm3 (4.5-10.0)
[2021-04-07 06:50] LABS: Anion Gap 7 mmol/L (8-16); Blood Urea Nitrogen 31 mg/dL (9-20); Calcium 8.1 mg/dL (8.4-10.2); Carbon Dioxide 22 mmol/L (22-30); Chloride 104 mmol/L (98-107); Estimated CRCL calculation 49 ml/min; Estimated Glomerular Filt Rate 40; Glucose 92 mg/dL (75-110); Sodium 133 mmol/L (137-145)
[2021-04-07 09:44] VITALS: PULSE 88
[2021-04-07] MEDS: amLODIPine BESYLATE 5 MG TABLET PO (09:44)
[2021-04-07] MEDS: PANTOPRAZOLE 40 MG TABLET PO ×2 (09:44→17:17)
[2021-04-07] MEDS: LOSARTAN POTASSIUM 100 MG TABLET PO (09:44)
[2021-04-07] MEDS: METOPROLOL SUCCINATE EXT REL 100 MG TABCR PO (09:44)
[2021-04-07] MEDS: allopurinoL 300 MG TABLET PO (09:44)
--- NOTE | 2021-04-07 09:47 | P.PNIM_ITS ---
Progress Note: A&P Assessment and Plan (1) Osteomyelitis of left foot: Qualifiers: Osteomyelitis type: unspecified type Qualified Code(s): M86.9 - Osteomyelitis, unspecified Code(s): M86.9 - Osteomyelitis, unspecified Status: Acute Assessment and Plan: * Foot x-ray shows suspicion for superimposed osteomyelitis/septic arthritis. * Follow-up foot MRI shows extensive osseous destructive changes in the mid and hindfoot most suspicious for osteomyelitis as well as 8.5 x 6.3 x 1.8 cm loculated fluid collection of the dorsal foot concerning for abscess. * He has a history of MRSA of left foot wound in January 2021. * He had an MRI in February 2021 with no evidence of abscess or osteomyelitis, per his orthopedic surgeon. * Wound culture shows MRSA * Vancomycin 1750mg Q18hr IV * Dr. Vang consulted thank you for recommendations * Appreciate orthopedic surgery consultation * Spoke with patient's orthopedic surgeon at [facility], Dr. Madrid/MARTINE Barron as well as Dr. West (orthopedics). All parties in agreement for transfer to [facility] for surgical evaluation by Dr. Madrid. - patient accepted for transfer to medical service at [facility] under care of Dr. Bunch with surgical consult. Awaiting bed availability (2) Abscess of left foot: Code(s): L02.612 - Cutaneous abscess of left foot Status: Acute Assessment and Plan: * Planning as above (3) Septicemia: Code(s): A41.9 - Sepsis, unspecified organism Status: Acute Assessment and Plan: * Septic on admission with leukocytosis, tachycardia, and fever. * Source of infection is foot abscess/osteomyelitis as above. * Lactic 0.7. Remained afebrile today. Leukocytosis getting better at 14.9 * Blood cultures with growth of MRSA in 2/2 bottles * Left wound culture growing MRSA * Consult to Infectious Disease. Input is appreciated * Continue IV vancomycin 1750mg Q18hr. IV cefepime discontinued per ID * Echocardiogram has been ordered in light of bacteremia, EF 35-40% with grade 1 diastolic dysfunction, no vegetation noted * Continue IV fluids NS 75ml/hr * Monitor vital signs and electrolytes (4) Anemia: Code(s): D64.9 - Anemia, unspecified Status: Acute Assessment and Plan: * Hemoglobin was 8.5 at presentation with decline down to 7.0. * Denies bleeding and no signs/symptoms to suggest GI bleed. * Iron panel suggestive of anemia of chronic disease. * H&H lower today at 7.3, will check it again this afternoon * Transfused 1 unit PRBC on 04/05/2021 * Monitor hemoglobin hematocrit closely * Stool occult blood test has been ordered and awaiting collection * May benefit from IV iron infusion but will hold at this time in light of acute infection * Continue IV protonix. Reports history of PUD. Hold plavix at this time. (5) Fall: Qualifiers: Encounter type: initial encounter Qualified Code(s): W19.XXXA - Unspecified fall, initial encounter Code(s): W19.XXXA - Unspecified fall, initial encounter Status: Acute Assessment and Plan: * Fell at home and was down on the ground for approximately 2 hours. * Complains of shoulder pain, knee pain, and buttock pain. * CK slightly elevated at 880, improved today down to 350 with fluids. * Knee, hip, sacrum and coccyx, and shoulder x-ray with no acute findings. * Fall precautions * Supportive care. * Percocet 1 tab PO Q6-8hr
--- NOTE | 2021-04-07 09:47 | PM.IMPN ---
Progress Note: A&P Assessment and Plan (1) Osteomyelitis of left foot: Qualifiers: Osteomyelitis type: unspecified type Qualified Code(s): M86.9 - Osteomyelitis, unspecified Code(s): M86.9 - Osteomyelitis, unspecified Status: Acute Assessment and Plan: Foot x-ray shows suspicion for superimposed osteomyelitis/septic arthritis. Follow-up foot MRI shows extensive osseous destructive changes in the mid and hindfoot most suspicious for osteomyelitis as well as 8.5 x 6.3 x 1.8 cm loculated fluid collection of the dorsal foot concerning for abscess. He has a history of MRSA of left foot wound in January 2021. He had an MRI in February 2021 with no evidence of abscess or osteomyelitis, per his orthopedic surgeon. Wound culture shows MRSA Vancomycin 1750mg Q18hr IV Dr. Vang consulted thank you for recommendations Appreciate orthopedic surgery consultation Spoke with patient's orthopedic surgeon at [facility], Dr. Madrid/MARTINE Barron as well as Dr. West (orthopedics). All parties in agreement for transfer to [facility] for surgical evaluation by Dr. Madrid. - patient accepted for transfer to medical service at [facility] under care of Dr. Bunch with surgical consult. Awaiting bed availability (2) Abscess of left foot: Code(s): L02.612 - Cutaneous abscess of left foot Status: Acute Assessment and Plan: Planning as above (3) Septicemia: Code(s): A41.9 - Sepsis, unspecified organism Status: Acute Assessment and Plan: Septic on admission with leukocytosis, tachycardia, and fever. Source of infection is foot abscess/osteomyelitis as above. Lactic 0.7. Remained afebrile today. Leukocytosis getting better at 14.9 Blood cultures with growth of MRSA in 2/2 bottles Left wound culture growing MRSA Consult to Infectious Disease. Input is appreciated Continue IV vancomycin 1750mg Q18hr. IV cefepime discontinued per ID Echocardiogram has been ordered in light of bacteremia, EF 35-40% with grade 1 diastolic dysfunction, no vegetation noted Continue IV fluids NS 75ml/hr Monitor vital signs and electrolytes (4) Anemia: Code(s): D64.9 - Anemia, unspecified Status: Acute Assessment and Plan: Hemoglobin was 8.5 at presentation with decline down to 7.0. Denies bleeding and no signs/symptoms to suggest GI bleed. Iron panel suggestive of anemia of chronic disease. H&H lower today at 7.3, will check it again this afternoon Transfused 1 unit PRBC on 04/05/2021 Monitor hemoglobin hematocrit closely Stool occult blood test has been ordered and awaiting collection May benefit from IV iron infusion but will hold at this time in light of acute infection Continue IV protonix. Reports history of PUD. Hold plavix at this time. (5) Fall: Qualifiers: Encounter type: initial encounter Qualified Code(s): W19.XXXA - Unspecified fall, initial encounter Code(s): W19.XXXA - Unspecified fall, initial encounter Status: Acute Assessment and Plan: Fell at home and was down on the ground for approximately 2 hours. Complains of shoulder pain, knee pain, and buttock pain. CK slightly elevated at 880, improved today down to 350 with fluids. Knee, hip, sacrum and coccyx, and shoulder x-ray with no acute findings. Fall precautions Supportive care. Percocet 1 tab PO Q6-8hr, add morphine 1-2mg IV PRN for pain. Appreciate PT/OT eval (6) HTN (hypertension), benign: Code(s): I10 - Essential (primary) hypertension Status: Acute Assessment and Plan: Blood pressures reviewed and have been stable on the lower end. Last BP 108/53 Continue amlodipine 5mg PO and losartan 100mg PO daily adjust medications as needed. (7) WARNER (acute kidney injury): Code(s): N17.9 - Acute kidney failur
[2021-04-07] MEDS: MORPHINE SULFATE (*CRX) 2 MG/ML INJ IV PUSH (10:46)
[2021-04-07] MEDS: WATER FOR IRRIGATION, STERILE 1,000 ML BOTTLE 1000 ML (10:52)
--- NOTE | 2021-04-07 10:57 | PCOTNOTE ---
Attempted to see patient this am, however patient refused all functional OT activities at this time.
--- NOTE | 2021-04-07 12:09 | WPDINFPN2 ---
Progress Note: A&P Assessment and Plan (1) Septicemia: Code(s): A41.9 - Sepsis, unspecified organism Status: Acute Assessment and Plan: MRSA bacteremia with infection, L foot source. REC Vancomycin, 2 weeks if he has BKA (or more if persistent + BCs), otherwise 6 weeks. Even then, no guarantee of cure. To be transferred to [facility], I will see as outpatient if requested Subjective Date/time seen: 04/07/21 12:09 Objective Data Vital Signs Vital Signs: Vital Signs - 24 hr 04/06/21 14:00 04/06/21 22:00 04/06/21 23:35 Temperature 36.3 C L 36.6 C Pulse Rate 75 87 88 Respiratory Rate 18 20 Blood Pressure 101/50 L 103/48 L Pulse Oximetry 99 99 93 04/07/21 06:00 04/07/21 09:44 Temperature 36.4 C Pulse Rate 89 88 Respiratory Rate 20 Blood Pressure 108/53 L Pulse Oximetry 97 Intake/Output Intake/Output: Intake & Output 04/04/21 04/05/21 04/06/21 04/07/21 23:59 23:59 23:59 23:59 Intake Total 1390 2500 3300 300 Output Total 1150 1050 300 Balance 1390 1350 2250 0 Meds/Results Medications: Active Medications Generic Name Dose Route Start Last Admin Trade Name Freq PRN Reason Stop Dose Admin Acetaminophen 650 mg 04/07/21 10:20 Acetaminophen 325 Mg Tablet PO Q6H PRN Mild Pain (1-3) or Fever Allopurinol 300 mg 04/05/21 08:00 04/07/21 09:44 Allopurinol 300 Mg Tablet PO 300 mg DAILY@0800 SHELLY Administration Amlodipine Besylate 5 mg 04/05/21 09:00 04/07/21 09:44 Amlodipine Besylate 5 Mg Tablet PO 5 mg DAILY SHELLY Administration Atorvastatin Calcium 10 mg 04/05/21 21:00 04/06/21 20:53 Atorvastatin 10 Mg Tablet PO 10 mg HS SHELLY Administration Clopidogrel Bisulfate 75 mg 04/05/21 09:00 04/05/21 10:22 Clopidogrel Bisulfate 75 Mg Tablet PO 75 mg DAILY SHELLY Administration Sodium Chloride 1,000 mls @ 75 mls/hr 04/05/21 01:15 04/06/21 21:09 Normal Saline Iv IV CONT Not Given .[id number] SHELLY Vancomycin HCl 1,750 mg in 500 mls @ 250 mls/hr 04/07/21 07:00 04/07/21 06:21 Vancomycin 1,750 Mg/D5w 500 Ml IVPB 250 mls/hr Q18H SHELLY Administration Losartan Potassium 100 mg 04/05/21 09:00 04/07/21 09:44 Losartan Potassium 100 Mg Tablet PO 100 mg DAILY SHELLY Administration Metoprolol Succinate 100 mg 04/05/21 09:00 04/07/21 09:44 Metoprolol Succinate Ext Rel 100 Mg Tabcr PO 100 mg DAILY SHELLY Administration Oxycodone HCl 5 mg 04/07/21 11:35 Oxycodone Hcl (*Crx) 5 Mg Tab Ir PO Q4H PRN Pain Rated 7-10 Oxycodone/Acetaminophen 1 tablet 04/07/21 11:36 Oxycodone/Acetaminophen (*Crx) 5-325 Mg Tablet PO Q4HR PRN Pain (Scale Score 4-6) Pantoprazole Sodium 40 mg 04/05/21 09:00 04/07/21 09:44 Pantoprazole 40 Mg Tablet PO 05/05/21 09:01 40 mg BID SHELLY Administration Zolpidem Tartrate 10 mg 04/06/21 21:00 04/06/21 21:45 Zolpidem Tartrate (*Crx) 5 Mg Tablet PO 10 mg HS SHELLY Administration Radiology Results: ITS Impressions Knee X-Ray 04/04/21 12:40 IMPRESSION: 1: NO ACUTE BONE OR JOINT ABNORMALITY IDENTIFIED. Sacrum and Coccyx X-Ray 04/04/21 12:40 IMPRESSION: 1. No acute osseous abnormality. Hip X-Ray 04/04/21 12:41 IMPRESSION: 1: NO ACUTE BONE OR JOINT ABNORMALITY IDENTIFIED. Shoulder X-Ray 04/04/21 12:42 IMPRESSION: 1. Advanced osteoarthritis of the glenohumeral joint without acute osseous findings. Chest X-Ray 04/04/21 13:24 IMPRESSION: 1. No acute cardiopulmonary abnormality. Foot X-Ray 04/04/21 17:15 IMPRESSION: 1. 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 The location of the plantar ulcer is suspicious for superimposed osteomyelitis/septic arthritis. Note that neuropathic osteoarthropathy and osteomyelitis/septic arthritis have a similar appearance, and the distribution of infection likely cannot be determined by imaging in this case. Venous Doppler Study 04/05
[2021-04-07] MEDS: SODIUM CHLORIDE 0.9% IV 1,000 ML 75 ML IV CONT (12:12)
[2021-04-07] MEDS: FUROSEMIDE INJ 40 MG/4 ML VIAL 20 MG IV PUSH (12:13)
[2021-04-07 14:00] VITALS: BP 109/46; PULSE 84; RESP 18; TEMP 36.6; O2SAT 97
--- NOTE | 2021-04-07 16:34 | CONS_ITS ---
DATE OF CONSULTATION: 04/07/2021 REASON FOR CONSULTATION: MRSA bacteremia. HISTORY OF PRESENT ILLNESS: 70-year-old male with longstanding diabetes. He has known Charcot foot. He has been seen by multiple specialists this year for an ulcer over the plantar aspect of his left foot. He has known diabetes mellitus. The patient has also been seen by Podiatry and by another surgeon at [facility]. He has had antibiotics prescribed at [facility] about a month ago, ciprofloxacin included which he has now completed and had no effect on his pain. This apparently was the indication for the antibiotics. The patient presented to the emergency room here 3 days ago after a fall where he injured his right epps. He had diffuse pain. No syncope. No events here in the hospital. He thinks he had fever up to 38.3 at home. No rigors. No night sweats. ALLERGIES: PROPOXYPHENE, ANAPHYLAXIS. CURRENT MEDICATIONS: List reviewed. No immunosuppressants. HABITS: Ex-smoker since 2010. Heavy smoker before then. He has 6 drinks per week. PAST MEDICAL HISTORY: Left foot exostosis 2016, LIZZIE with positive pressure ventilation in the form of CPAP, osteoporosis, hypogonadism, hypertension, hyperlipidemia, gout, GERD, COPD, carotid artery stenosis, right footdrop, arthritis. REVIEW OF SYSTEMS: Shortness of breath. 14-point review otherwise negative. FAMILY HISTORY: Not pertinent to his present illness. SOCIAL HISTORY: He is , lives locally. PHYSICAL EXAMINATION: VITAL SIGNS: T-max on hospital day 2, 37.7, otherwise afebrile, 108/53, 89, 20. SKIN: Warm and dry. No generalized rash. No erythroderma. EENT: The conjunctivae appear clear. Pupils equal, round. He has a CPAP mask in place over his mouth compromising exam. There is no paranasal sinus erythema, edema or tenderness. NECK: No masses or meningismus. LUNGS: Clear to auscultation, though with diminished breath sounds. Clear to percussion. CARDIAC: Very distant S1, S2. Regular rate and rhythm. ABDOMEN: Massively obese. No organomegaly noted. No masses. Hypoactive bowel sounds. EXTREMITIES: 2+ nonpitting edema over both feet, worse on the left. He has a plantar 2 cm skin defect which is partial thickness on the left foot. He also has epidermal loss and mild erythema over the dorsum of the left foot. He has diminished light touch sensation. RADIOLOGY: MRI of the foot, left side, osseous destructive changes, midfoot, hind foot, suspect to be a combination of osteomyelitis and neuropathic arthropathy. There is a loculated fluid collection up to 8.5 cm, dorsal subcutaneous tissues, suspected abscess. Plain films of the foot the previous day, worsening findings compared to 08/23/2020. Chest x-ray, no active disease. LABORATORY DATA: Blood cultures, admission MRSA, vancomycin TANO equal 1. A wound culture, 04/04, same organism. Repeat blood culture not yet done. His white count was 18.6, now 14.9, hemoglobin 7.3, which is stable. Platelets are 403. Differential, left shift. He has mild hyponatremia. BUN 31, creatinine 1.7 up from 0.8. A1c is not available. CRP 26. ASSESSMENT: 1. Methicillin-resistant Staphylococcus aureus bacteremia with infection, left foot source. Other sources are less likely including pulmonary, primary endovascular, bone and joint otherwise, or skin soft tissue. 2. Right total knee arthroplasty, not infected by symptoms or exam. He also has had previous left knee surgery apparently without implants of any kind by his description. 3. Diabetes mellitus, questionable control. 4. Peripheral neuropathy and Charcot foot. RECOMMENDATIONS: 1. Continue vancomycin. 2. If he undergoes BKA, then 2 weeks of vancomycin wou
[2021-04-07] MEDS: ATORVASTATIN 10 MG TABLET PO (21:28)
[2021-04-07] MEDS: ZOLPIDEM TARTRATE (*CRX) 5 MG TABLET 10 MG PO (21:28)
[2021-04-07 22:00] VITALS: BP 125/55; PULSE 98; RESP 18; TEMP 37.2; O2SAT 95
[2021-04-07 23:34] VITALS: PULSE 92; O2SAT 93
[2021-04-08] VITALS (7 sets, daily range): BP systolic 116–130; BP diastolic 49–70; PULSE 73–88; RESP 18–20; TEMP 36.4–37; O2SAT 94–100
[2021-04-08] MEDS: SODIUM CHLORIDE 0.9% IV 1,000 ML 75 ML IV CONT (01:18)
[2021-04-08] MEDS: oxyCODONE HCL (*CRX) 5 MG TAB IR PO ×3 (01:18→11:10)
[2021-04-08] MEDS: oxyCODONE/ACETAMINOPHEN (*CRX) 5-325 MG TABLET 1 TABLET PO ×3 (01:18→11:09)
[2021-04-08] MEDS: amLODIPine BESYLATE 5 MG TABLET PO (08:41)
[2021-04-08] MEDS: METOPROLOL SUCCINATE EXT REL 100 MG TABCR PO (08:41)
[2021-04-08] MEDS: allopurinoL 300 MG TABLET PO (08:42)
[2021-04-08] MEDS: LOSARTAN POTASSIUM 100 MG TABLET PO (08:42)
[2021-04-08] MEDS: PANTOPRAZOLE 40 MG TABLET PO (08:42)
[2021-04-08 08:51] LABS: Basophils Absolute Auto 0.1 K/mm3 (0.0-0.1); Basophils Percent Auto 0.5 % (0.2-1.2); Eosinophils Absolute Auto 0.2 K/mm3 (0-0.3); Eosinophils Percent Auto 1.4 % (0-4.4); Hematocrit 22.3 % (42.0-52.0); Immature Granulocyte Absolute 0.36 K/mm3 (0.00-0.031); Immature Granulocyte Percent A 2.1 % (0-0.5); Lymphocytes Absolute Auto 1.36 K/mm3 (0.9-3.2); Lymphocytes Percent Auto 8.1 % (18.3-44.2); Mean Corpuscular Hemoglobin 23.4 pg (26-34); Mean Platelet Volume 8.8 fl (7.4-10.4); Monocytes Absolute Auto 1.2 K/mm3 (0.1-0.6); Monocytes Percent Auto 7.1 % (2.6-8.5); Neutrophils Absolute Auto 13.6 K/mm3 (1.3-6.7); Neutrophils Percent Auto 80.8 % (45.5-73.1); Platelet Count Result 415 k/mm3 (150-375); Red Blood Count 2.86 M/mm3 (4.6-6.20); Red Cell Distribution Width 18.1 % (11.5-14.5); White Blood Count 16.8 K/mm3 (4.5-10.0)
[2021-04-08 08:54] LABS: Hemoglobin 6.7 g/dL (14.0-18.0)
[2021-04-08 09:00] LABS: Alanine Aminotransferase 88 U/L (4-50); Albumin Level 2.7 g/dL (3.5-5.1); Alkaline Phosphatase 179 U/L (38-126); Anion Gap 6 mmol/L (8-16); Aspartate Amino Transferase 193 U/L (17-59); Bilirubin,Total 0.9 mg/dL (0.2-1.3); Blood Urea Nitrogen 33 mg/dL (9-20); Calcium 8.3 mg/dL (8.4-10.2); Carbon Dioxide 23 mmol/L (22-30); Chloride 103 mmol/L (98-107); Estimated CRCL calculation 32 ml/min; Estimated Glomerular Filt Rate 25; Glucose 90 mg/dL (75-110); Potassium 4.1 mmol/L (3.4-5.0); Sodium 132 mmol/L (137-145)
[2021-04-08] MEDS: FERROUS SULFATE 324 MG TABLET PO (09:00)
--- NOTE | 2021-04-08 09:24 | P.TS_ITS ---
Transfer Discharge Sum: Prov Provider Date of admission: 04/05/21 10:59 Primary care physician: Sunil Wilkerson MD Admitting clinician: Josias Dillard MD Consults: 04/04/21 Consult to Physician Routine Comment: Consulting Provider: Lalo West Reason for consultation: left foot osteomyelitis Has provider been notified: Yes 04/06/21 Consult to Physician Routine Comment: spoke to dr gonzalez @[facility] [place], spoke to dr(,) Consulting Provider: Dennis Gonzalez call center assistant/MD group to consult: Dr. Gonzalez Reason for consultation: MRSA bacteremia Has provider been notified: Yes DS: Admitting Diagnosis Admitting Diagnosis Admitting Diagnosis: Osteomylitis DS: Discharge Diagnosis Discharge Diagnosis (1) Osteomyelitis of left foot: Qualifiers: Osteomyelitis type: unspecified type Qualified Code(s): M86.9 - Osteomyelitis, unspecified Code(s): M86.9 - Osteomyelitis, unspecified Status: Acute Assessment and Plan: * Foot x-ray shows suspicion for superimposed osteomyelitis/septic arthritis. * Follow-up foot MRI shows extensive osseous destructive changes in the mid and hindfoot most suspicious for osteomyelitis as well as 8.5 x 6.3 x 1.8 cm loculated fluid collection of the dorsal foot concerning for abscess. * He has a history of MRSA of left foot wound in January 2021. * He had an MRI in February 2021 with no evidence of abscess or osteomyelitis, per his orthopedic surgeon. * Wound culture shows MRSA * Vancomycin 1750mg Q18hr IV * Dr. Gonzalez consulted thank you for recommendations * Appreciate orthopedic surgery consultation * Spoke with patient's orthopedic surgeon at [facility], Dr. Madrid/MARTINE Barron as well as Dr. West (orthopedics). All parties in agreement for transfer to [facility] for surgical evaluation by Dr. Madrid. - patient accepted for transfer to medical service at [facility] under care of Dr. Bunch with surgical consult. Awaiting bed availability Bed was given at [facility] , patient will be transferred today (2) Abscess of left foot: Code(s): L02.612 - Cutaneous abscess of left foot Status: Acute Assessment and Plan: * Planning as above (3) Septicemia: Code(s): A41.9 - Sepsis, unspecified organism Status: Acute Assessment and Plan: * Septic on admission with leukocytosis, tachycardia, and fever. * Source of infection is foot abscess/osteomyelitis as above. * Lactic 0.7. Remained afebrile today. Leukocytosis getting better at 14.9 * Blood cultures with growth of MRSA in 2/2 bottles * Left wound culture growing MRSA * Consult to Infectious Disease. Input is appreciated * Continue IV vancomycin 1750mg Q18hr. IV cefepime discontinued per ID * Echocardiogram has been ordered in light of bacteremia, EF 35-40% with grade 1 diastolic dysfunction, no vegetation noted * Continue IV fluids NS 75ml/hr * Monitor vital signs and electrolytes (4) Anemia: Code(s): D64.9 - Anemia, unspecified Status: Acute Assessment and Plan: * Hemoglobin was 8.5 at presentation with decline down to 7.0. * Denies bleeding and no signs/symptoms to suggest GI bleed. * Iron panel suggestive of anemia of chronic disease. * H&H lower today at 6.7, will check it again this afternoon * Transfused 1 unit PRBC on (04/05/2021) & (04/08/21) * Talon
--- NOTE | 2021-04-08 09:24 | PM.TDS ---
Transfer Discharge Sum: Prov Provider Date of admission: 04/05/21 10:59 Primary care physician: Sunil Wilkerson MD Admitting clinician: Josias Dillard MD Consults: 04/04/21 Consult to Physician Routine Comment: Consulting Provider: Lalo West Reason for consultation: left foot osteomyelitis Has provider been notified: Yes 04/06/21 Consult to Physician Routine Comment: spoke to dr gonzalez @09, spoke to dr(,) Consulting Provider: Dennis Gonzalez director call/MD group to consult: Dr. Gonzalez Reason for consultation: MRSA bacteremia Has provider been notified: Yes DS: Admitting Diagnosis Admitting Diagnosis Admitting Diagnosis: Osteomylitis DS: Discharge Diagnosis Discharge Diagnosis (1) Osteomyelitis of left foot: Qualifiers: Osteomyelitis type: unspecified type Qualified Code(s): M86.9 - Osteomyelitis, unspecified Code(s): M86.9 - Osteomyelitis, unspecified Status: Acute Assessment and Plan: Foot x-ray shows suspicion for superimposed osteomyelitis/septic arthritis. Follow-up foot MRI shows extensive osseous destructive changes in the mid and hindfoot most suspicious for osteomyelitis as well as 8.5 x 6.3 x 1.8 cm loculated fluid collection of the dorsal foot concerning for abscess. He has a history of MRSA of left foot wound in January 2021. He had an MRI in February 2021 with no evidence of abscess or osteomyelitis, per his orthopedic surgeon. Wound culture shows MRSA Vancomycin 1750mg Q18hr IV Dr. Gonzalez consulted thank you for recommendations Appreciate orthopedic surgery consultation Spoke with patient's orthopedic surgeon at [facility], Dr. Madrid/MARTINE Barron as well as Dr. West (orthopedics). All parties in agreement for transfer to [facility] for surgical evaluation by Dr. Madrid. - patient accepted for transfer to medical service at [facility] under care of Dr. Bunch with surgical consult. Awaiting bed availability Bed was given at [facility] , patient will be transferred today (2) Abscess of left foot: Code(s): L02.612 - Cutaneous abscess of left foot Status: Acute Assessment and Plan: Planning as above (3) Septicemia: Code(s): A41.9 - Sepsis, unspecified organism Status: Acute Assessment and Plan: Septic on admission with leukocytosis, tachycardia, and fever. Source of infection is foot abscess/osteomyelitis as above. Lactic 0.7. Remained afebrile today. Leukocytosis getting better at 14.9 Blood cultures with growth of MRSA in 2/2 bottles Left wound culture growing MRSA Consult to Infectious Disease. Input is appreciated Continue IV vancomycin 1750mg Q18hr. IV cefepime discontinued per ID Echocardiogram has been ordered in light of bacteremia, EF 35-40% with grade 1 diastolic dysfunction, no vegetation noted Continue IV fluids NS 75ml/hr Monitor vital signs and electrolytes (4) Anemia: Code(s): D64.9 - Anemia, unspecified Status: Acute Assessment and Plan: Hemoglobin was 8.5 at presentation with decline down to 7.0. Denies bleeding and no signs/symptoms to suggest GI bleed. Iron panel suggestive of anemia of chronic disease. H&H lower today at 6.7, will check it again this afternoon Transfused 1 unit PRBC on (04/05/2021) & (04/08/21) Monitor hemoglobin hematocrit closely Stool occult blood test has been ordered and awaiting collection May benefit from IV iron infusion but will hold at this time in light of acute infection Continue IV protonix. Reports history of PUD. Hold plavix at this time. HGB todya could be dilutional. NA is 132, creatinine did increase significantly. (5) Fall: Qualifiers: Encounter type: initial encounter Qualified Code(s): W19.XXXA - Unspecified fall, initial encounter Code(s): W19.XXXA - Unspecified fall,
--- NOTE | 2021-04-08 09:55 | PCPTNOTE ---
Attempted to see pt this AM for pt session. Pt continues to decline any participation stating he is in too much pain and can't do it despite max education on the benefits of therapy and importance of participation. Therapist also attempted to see pt on 04/06 and made multiple attempts on 04/07 but pt declined on those days as well. Pt was educated on the consequences of remaining in bed during this hospital stay and given continued encouragement to participate in therapy session on this date. Pt was also informed that because this is the third day in a row refusing therapy, PT will be discharging pt. Pt states he understands but still does not want to participate. PT will plan to discharge pt at this time.
[2021-04-08] MEDS: SODIUM CHLORIDE 0.9% IV 250 ML 30 ML IV CONT (10:58)
[2021-04-08] MEDS: FUROSEMIDE INJ 40 MG/4 ML VIAL 20 MG IV PUSH (11:07)
--- NOTE | 2021-04-08 11:18 | PC.NURSE ---
Receiving facility called for report at 1030 by this RN. Facility stated receiving RN was not available at this time for report. Call back number was given to marketing secretary.
== END 2021-04-08 12:50 | disposition short-term general hospital (02) | DRG 872 ==
LOC: ANHED 13:15 → ANH3MEDSUR 17:25
PROVIDERS: Emergency Medicine; Internal Medicine; Nurse Practitioner; Physician Assistant; Admitting Provider Family Medicine; Emergency Provider Emergency Medicine; PCP Family Medicine; Visit Provider Family Medicine
DX: A41.02 Sepsis due to Methicillin resistant Staphylococcus aureus (principal); M86.172 Other acute osteomyelitis, left ankle and foot; L02.612 Cutaneous abscess of left foot; N17.9 Acute kidney failure, unspecified; M00.072 Staphylococcal arthritis, left ankle and foot; L97.429 Non-pressure chronic ulcer of left heel and midfoot with unspecified severity; E11.69 Type 2 diabetes mellitus with other specified complication; E11.621 Type 2 diabetes mellitus with foot ulcer; D63.8 Anemia in other chronic diseases classified elsewhere; I10 Essential (primary) hypertension; G47.33 Obstructive sleep apnea (adult) (pediatric); M21.371 Foot drop, right foot; M19.90 Unspecified osteoarthritis, unspecified site; J43.9 Emphysema, unspecified; K21.9 Gastro-esophageal reflux disease without esophagitis; E11.610 Type 2 diabetes mellitus with diabetic neuropathic arthropathy; E11.42 Type 2 diabetes mellitus with diabetic polyneuropathy; M14.672 Charcot's joint, left ankle and foot; M81.0 Age-related osteoporosis without current pathological fracture; S80.212A Abrasion, left knee, initial encounter; S80.211A Abrasion, right knee, initial encounter; W19.XXXA Unspecified fall, initial encounter; M54.16 Radiculopathy, lumbar region; E29.1 Testicular hypofunction; M10.9 Gout, unspecified; M48.061 Spinal stenosis, lumbar region without neurogenic claudication; I65.21 Occlusion and stenosis of right carotid artery; M19.012 Primary osteoarthritis, left shoulder; M19.011 Primary osteoarthritis, right shoulder; Z87.891 Personal history of nicotine dependence
CPT/HCPCS: 36415; 36430; 71045; 72220; 73030; 73502; 73564; 73630; 73718; 80048; 80053; 80202; 81001; 82550; 82607; 82728; 82746; 83540; 83550; 83605; 85014; 85018; 85025; 85046; 85652; 86140; 86850; 86900; 86901; 86920; 87040; 87070; 87086; 87147; 87186; 87205; 93005; 93306; 93971; 96361; 96365; 96367; 96375; 96376; 97161; 97165; 97535; 99285; A9270; C8929; G0378; J0456; J0692; J0696; J1940; J2270; J3370; J7030; J7050; P9016; Q9957

== ENCOUNTER 2021-04-25 16:23 | Outpatient (NON) | payer OTHER, SELFPAY ==
[2021-04-25 16:42] LABS: Basophils Percent Auto 0.1 % (0.2-1.2); Eosinophils Absolute Auto 0.1 K/mm3 (0-0.3); Eosinophils Percent Auto 0.9 % (0-4.4); Hematocrit 32.2 % (42.0-52.0); Hemoglobin 9.5 g/dL (14.0-18.0); Immature Granulocyte Absolute 0.14 K/mm3 (0.00-0.031); Immature Granulocyte Percent A 0.9 % (0-0.5); Lymphocytes Absolute Auto 1.23 K/mm3 (0.9-3.2); Lymphocytes Percent Auto 8.3 % (18.3-44.2); Mean Corpuscular HGB Conc 29.5 g/dl (32-36); Mean Corpuscular Hemoglobin 25.2 pg (26-34); Mean Corpuscular Volume 85.4 fl (80-100); Mean Platelet Volume 10.9 fl (7.4-10.4); Monocytes Percent Auto 6.6 % (2.6-8.5); Neutrophils Absolute Auto 12.4 K/mm3 (1.3-6.7); Neutrophils Percent Auto 83.2 % (45.5-73.1); Platelet Count Result 223 k/mm3 (150-375); Red Blood Count 3.77 M/mm3 (4.6-6.20); White Blood Count 14.9 K/mm3 (4.5-10.0)
[2021-04-25 19:02] LABS: Alanine Aminotransferase 13 U/L (4-50); Albumin Level 3.1 g/dL (3.5-5.1); Alkaline Phosphatase 68 U/L (38-126); Anion Gap 11 mmol/L (8-16); Aspartate Amino Transferase 33 U/L (17-59); Bilirubin,Total 0.5 mg/dL (0.2-1.3); Blood Urea Nitrogen 24 mg/dL (9-20); Calcium 8.1 mg/dL (8.4-10.2); Carbon Dioxide 23 mmol/L (22-30); Chloride 101 mmol/L (98-107); Creatine Kinase < 20 U/L (55-170); Estimated Glomerular Filt Rate > 60; Glucose 109 mg/dL (75-110); Potassium 3.2 mmol/L (3.4-5.0); Sodium 135 mmol/L (137-145)
== END 2021-04-25 16:24 | disposition home or self-care (01) ==
LOC: HOME HLTH 16:25
PROVIDERS: PCP Family Medicine; Visit Provider Family Medicine
DX: M14.672 Charcot's joint, left ankle and foot (principal); L97.529 Non-pressure chronic ulcer of other part of left foot with unspecified severity; Z48.00 Encounter for change or removal of nonsurgical wound dressing
CPT/HCPCS: 80053; 82550; 85025